=== PATIENT | female | born 1950 | race Caucasian/White ===

== ENCOUNTER 2025-06-12 06:56 | Day surgery (SDC) | payer MEDICARE, OTHER ==
[~2025-06-12 06:56] MED LIST: Lactated Ringers 1,000 ML IV SCH; Sodium Chloride 0.9% 10 ML Syringe FLUSH PRN; Sodium Chloride 0.9% 10 ML Syringe FLUSH SCH
[2025-06-12] MEDS: Lactated Ringers 1,000 ML IV SCH (07:20)
[2025-06-12] MEDS ORDERED: Propofol 200 MG/20 ML SDV ONE (07:40)
[2025-06-12] MEDS ORDERED: Phenylephrine 1% 10 MG/ML SDV ONE (08:00)
== END 2025-06-12 09:20 | disposition home or self-care (01) ==
LOC: JD.SDS 06:56
PROVIDERS: ATTEND Surgery
DX: Z12.11 Encounter for screening for malignant neoplasm of colon (principal); D12.0 Benign neoplasm of cecum; D12.5 Benign neoplasm of sigmoid colon; K63.5 Polyp of colon; K63.89 Other specified diseases of intestine; K57.31 Diverticulosis of large intestine without perforation or abscess with bleeding; I10 Essential (primary) hypertension; Z88.5 Allergy status to narcotic agent; Z87.891 Personal history of nicotine dependence; Z79.899 Other long term (current) drug therapy
CPT/HCPCS: 45380; 45384; J2003; J2371; J2704; J7120; 00811; 99100